=== PATIENT | male | born 1965 | race Caucasian/White ===

== ENCOUNTER 2019-08-21 06:39 | Observation (INO) ==
--- NOTE | 2019-08-11 21:02 | PAT Medication Instructions ---
Medication Instructions Date of Service August 11, 2019 Home Medications Medication Instructions Recorded diclofenac sodium 75 mg 75 mg PO BID PRN #60 tab 07/20/19 tablet,delayed release Continue as directed diclofenac sodium 75 mg tablet,delayed release 75 mg PO BID PRN acetaminophen [Tylenol Extra Strength] 1,000 mg PO TID PRN ASK your surgeon for instructions diclofenac sodium 75 mg tablet,delayed release 75 mg PO BID PRN Take morning of surgery With a small sip of water, OTHERWISE NOTHING TO EAT OR DRINK AFTER MIDNIGHT: acetaminophen [Tylenol Extra Strength] 1,000 mg PO TID PRN (okay to take up to 4 hours prior to surgery if needed) Take evening before surgery acetaminophen [Tylenol Extra Strength] 1,000 mg PO TID PRN (if needed) Other Notes If you have any questions please call us at [phone] or [phone] or [phone] or [phone]
--- NOTE | 2019-08-14 08:11 | Anesthesiology Consultation ---
Date of Service August 14, 2019 Assessment & Plan (1) Encounter for pre-operative examination: Per PAT assessment on 08/13: Travel screen negative. No known COVID-19 positive contacts. No current COVID-19 related symptoms. Patient scheduled for preop protocol COVID-19 testing on 08/15 (location TBD). Awaiting results. - Hx Glidescope intubation: Per anesthesia postprocedure (lap repair inguinal hernia) evaluation note from [facility] dated 05/15/18: "Endotracheal intubation was performed, a procedure that involves placement of a tube in your trachea using an instrument called a laryngoscope. When the procedure was performed, difficulty was encountered concerning your airway anatomy:your vocal cords could not be visualized using standard procedures. We were able to successfully ventilate you with positive pressure through a facemask and oral airway prior and during the intubation attempts. We were able to intubate you with the use of a video laryngoscope (Glidescope). If you needed to have a breathing tube placed we would recommend the use of a device similar to a Glidescope or a fibre optic bronchoscope." Chart Review Chart Review: Acceptable Risk for Surgery (pending COVID testing) and Patient seen in Pre Admission Testing Teaching & Discussion Pre-Anesthesia Teaching/Discussion Notes: Instructed NPO after midnight before surgery,except medications with 15 cc of water. Medication instructions provided according to the PAT guidelines. History Surgery Operation Date: 08/21/19 12:30 Proposed Procedures p Right Total Hip Replacement - Ken Ramos MD Height/Weight Height: 5 ft 10 in Weight: 121.1 kg Allergies Allergy/AdvReac Type Severity Reaction Status Date / Time No Known Allergies Allergy Mild Verified 08/08/19 13:19 Medications Home Medications Medication Instructions Recorded Confirmed Last Taken diclofenac sodium 75 mg 75 mg PO BID PRN #60 tab 07/20/19 08/08/19 Unknown tablet,delayed release acetaminophen [Tylenol Extra 1,000 mg PO TID PRN 08/08/19 08/08/19 Unknown Strength] Past Medical History Medical History (Updated 08/14/19 @ 08:32 by Sunni Collazo) Arthritis Obesity Past Family History Family History Father Family history of diabetes mellitus Past Surgical History Surgical History (Updated 08/14/19 @ 08:33 by Sunni Collazo) H/O elbow surgery R/L TENNIS ELBOW History of carpal tunnel release R/L History of cholecystectomy History of difficult intubation Per [facility] postprocedure anesthesia note for 04/2018 lap inguinal hernia repair: "Endotracheal intubation was performed, a procedure that involves placement of a tube in your trachea using an instrument called a laryngoscope. When the procedure was performed, difficulty was encountered concerning your airway anatomy:your vocal cords could not be visualized using standard procedures. We were able to successfully ventilate you with positive pressure through a facemask and oral airway prior and during the intubation attempts. We were able to intubate you with the use of a video laryngoscope (Glidescope). If you needed to have a breathing tube placed we would recommend the use of a device similar to a Glidescope or a fibre optic bronchoscope. History of hernia surgery X 3 History of PONV Hx of Motion Sickness (occasional) Social History Smoking Status: Never smoker Do You Dip or Chew Tobacco: No Hx Alcohol Use: Yes Alcohol type: hard liquor alcohol intake frequency: a few times a month Hx Substance Use: No Review of Systems Patient denies chest pain, shortness of breath, dyspnea on exertion, reflux, cough, wheezing, palpitations. Physical Exam Vital Signs VITALS BP 142/92 P 89 TEMP 98.2 SP02 95%RA RESP 18 PHYSICAL Full neck and c-spine range of motion. Full TMJ range of motion. TMD 4 finger breaths Mallampati Score 3 Dentition: upper right side missing, lower left molar to be extracted (filling lost and dentist recommended removal)- date TBD/patient states he will contact surgeon with date for dental work Lungs: clear throughout to auscultation Cardiac: regular rate and rhythm, no murmurs noted Spine: normal Carotid arteries: negative bruit Extremities: no edema + moustache Testing Laboratory Results 08/14/19 08:29 PT 11.7 Seconds (9.0-12.0) 08/14/19 08:29 INR 1.1 (0.9-1.1) 08/14/19 08:29 APTT 31.3 Seconds (21.0-31.0) H 08/14/19 08:29 Blood Type O Positive 08/14/19 08:29 Antibody Screen NEGATIVE 08/14/19 08:29 5/7/20 SODIUM 139 POTASSIUM 4.6 CHLORIDE 103 CO2 25 BUN 19 CREATININE 1.1 GLUCOSE 107 Electrocardiogram Date: 08/14/19 NSR at 72bpm. RVCD. No significant change compared to 12/05/2005 per brim and crown presser review. Chest X-Ray Date: 08/14/19 Heart and mediastinal and hilar silhouettes are within normal limits. Subcentimeter metallic radiodensity focus is again noted projecting over the midline lower neck. No pneumothorax, pleural effusion, airspace consolidation or overt pulmonary edema. Bones of the chest appear grossly intact. Mild convex right curvature of the midthoracic spine. Cholecystectomy. IMPRESSION: No acute process.
--- NOTE | 2019-08-14 09:11 | XRay Report ---
XR chest Pre-admission PA/Lat HISTORY: 54 years-old Male PAT preoperative exam. COMPARISON: Chest radiograph 12/05/2005 TECHNIQUE: PA and lateral views of the chest FINDINGS: Heart and mediastinal and hilar silhouettes are within normal limits. Subcentimeter metallic radioden sity focus is again noted projecting over the midline lower neck. No pneumothorax, pleural effusion, airspace consolidation or overt pulmonary edema. Bones of the chest appear grossly intact. Mild conve x right curvature of the midthoracic spine. Cholecystectomy. IMPRESSION: No acute process. ACT 112: Negative or not required by law. The above report was generated using voice recognition software. It may contain grammatical, syntax o r spelling errors. Electronically signed by: Kofi Lima M.D. 08/14/2019 9:09 AM
[2019-08-14 10:12] LABS: Basophils # (auto) 0.03 K/uL (0-0.2); Basophils % (auto) 0.5 %; Eosinophils # (auto) 0.08 K/uL (0-0.5); Eosinophils % (auto) 1.4 %; Hematocrit (blood only) 44.8 % (42-52); Hemoglobin 15.1 g/dL (14.0-18.0); Immature Granulocytes # (auto) 0.01 K/uL (0.00-0.02); Immature Granulocytes % (auto) 0.2 %; Lymphocytes # (auto) 0.66 K/uL (1.2-3.4); Lymphocytes % (auto) 11.9 %; Mean Corpuscular Hemoglobin 31.4 pg (25-34); Mean Corpuscular Hgb Conc 33.7 g/dL (32-36); Mean Corpuscular Volume 93.1 fL (80-100); Mean Platelet Volume 11.8 fL (7.4-10.4); Monocytes # (auto) 0.88 K/uL (0.11-0.59); Monocytes % (auto) 15.9 %; Neutrophils # (auto) 3.88 K/uL (1.4-6.5); Neutrophils % (auto) 70.1 %; Platelet Count 226 K/uL (130-400); RDW Coefficient of Variation 13.4 % (11.5-14.5); RDW Standard Deviation 45.9 fL (36.4-46.3); Red Blood Count 4.81 M/uL (4.7-6.1); White Blood Count 5.54 K/uL (4.8-10.8)
[2019-08-14 10:21] LABS: INR 1.1 (0.9-1.1); Partial Thromboplastin Ratio 1.1; Partial Thromboplastin Time 31.3 Seconds (21.0-31.0); Prothrombin Time 11.7 Seconds (9.0-12.0)
--- NOTE | 2019-08-14 12:19 | Electrocardiogram Report ---
Test Reason : Blood Pressure : / mmHG Vent. Rate : 072 BPM Atrial Rate : 072 BPM P-R Int : 148 ms QRS Dur : 108 ms QT Int : 398 ms P-R-T Axes : 038 052 031 degrees QTc Int : 435 ms Normal sinus rhythm Right ventricular conduction delay When compared with ECG of 05-DEC-2005 20:45, No significant change was found Confirmed by Alex Gonzales ([id number]) on 08/14/2019 12:18:26 PM Referred By: Ken Ramos Confirmed By:Sebastien Gonzales
[~2019-08-21 06:39] MED LIST: BUPIVACAINE 0.5 % 5 MG/1 ML PF 10ML VIAL ONE; CEFAZOLIN 3000MG 72.5 ML IV SCH; LR 500ML BOLUS, THEN 15ML/HR IV SCH; LR 60ML/HR IV SCH
[2019-08-21] MEDS ORDERED: TRANEXAMIC ACID / 0.7% NACL 1000MG/100ML BAG IV ONE (06:58)
[2019-08-21] MEDS ORDERED: GABAPENTIN 300 MG CAP ONE (06:58)
[2019-08-21] MEDS ORDERED: ACETAMINOPHEN 500 MG TAB ONE (06:58)
[2019-08-21] MEDS ORDERED: METOCLOPRAMIDE HCL 10 MG TABLET ONE (06:58)
[2019-08-21] MEDS ORDERED: SCOPOLAMINE 1.5 MG TDSY TD ONE (06:58)
[2019-08-21] MEDS ORDERED: MIDAZOLAM HCL 1 MG/ML 2ML VIAL ONE (07:41)
[2019-08-21] MEDS ORDERED: MoRPHine SULFATE PF 1 MG/ML 10 ML AMP/VIAL ONE (07:41)
[2019-08-21] MEDS ORDERED: ePHEDrine sulfate 50 MG/ML AMP IV PRN ×2 (08:13)
[2019-08-21] MEDS ORDERED: LACTATED RINGER'S 500 ML IV PRN (08:13)
[2019-08-21] MEDS ORDERED: MoRPHine SULFATE 2 MG/ML CARP IV PRN (08:13)
[2019-08-21] MEDS ORDERED: NALOXONE HCL 0.08 MG in SYRINGE 1.8 ML IV PRN (08:13)
[2019-08-21] MEDS ORDERED: ATROPINE SULFATE 0.1 MG/ML 10ML SYR IV PRN (08:13)
[2019-08-21] MEDS ORDERED: HYDROmorphone INJ 0.5 MG/0.5 ML SYR IV PRN (08:13)
[2019-08-21] MEDS ORDERED: MoRPHine SULFATE PF 1 MG/ML 10 ML AMP/VIAL INT SPINAL ONE (08:13)
[2019-08-21] MEDS ORDERED: NALOXONE HCL 1 MG in SODIUM CHLORIDE 0.9% 1000ML 1,000 ML IV PRN (08:13)
[2019-08-21] MEDS ORDERED: fentaNYL citrate 100 MCG/2 ML VIAL IV PRN (08:13)
[2019-08-21] MEDS ORDERED: NALOXONE HCL 0.4 MG/1 ML VIAL/CARP IV PRN ×2 (08:13→11:46)
[2019-08-21] MEDS ORDERED: NALBUPHINE HCL INJ 10 MG/ML AMP IV PRN (08:13)
[2019-08-21] MEDS ORDERED: ONDANSETRON INJ 2 MG/ML 2 ML VIAL IV PRN ×2 (08:13)
[2019-08-21] MEDS ORDERED: DiphenhydrAMINE HCL 50 MG/ML VIAL IV PRN (08:13)
[2019-08-21] MEDS ORDERED: NO NARCOTICS OR SEDATIVES SCH (08:15)
[2019-08-21] MEDS ORDERED: DC INTRASPINAL MORPHINE SCH (08:15)
[2019-08-21] MEDS ORDERED: SODIUM CHLORIDE 0.9% 1000ML 1,000 ML IV SCH (08:15)
--- NOTE | 2019-08-21 08:21 | History & Physical Bridge Note ---
Date of Service August 21, 2019 History & Physical Bridge Note I have examined the patient, reviewed the History & Physical and in the interval since the performance of the History & Physical I have noted the following changes of clinical significance: no changes noted
[2019-08-21] MEDS ORDERED: BUPIVACAINE 0.5 % 5 MG/1 ML MPF 30ML VIAL ONE (08:25)
[2019-08-21] MEDS ORDERED: BACITRACIN INJ 50,000 UNIT VIAL ONE (08:25)
[2019-08-21] MEDS ORDERED: EPINEPHrine INJ 1 MG/ML AMP ONE (08:25)
[2019-08-21] MEDS ORDERED: LIDOCAINE HCL 2% 2 ML VIAL/AMP(20MG/ML) INFIL ONE (09:23)
[2019-08-21] MEDS ORDERED: PHENYLEPHRINE 100MCG/ML 5ML SYR ONE (09:23)
[2019-08-21] MEDS ORDERED: PHENYLEPHRINE HCL 10 MG/ML VIAL ONE (09:23)
[2019-08-21] MEDS ORDERED: GLYCOPYRROLATE 0.2 MG/ML VIAL ONE (09:23)
[2019-08-21] MEDS ORDERED: PROPOFOL IV EMULSION 10 MG/ML 20 ML VIAL IV ONE ×3 (09:23→09:57)
--- NOTE | 2019-08-21 10:46 | Post Operative Brief Note ---
PG Immediate Post Op with CF Date of Surgery August 21, 2019 Pre & Post Diagnosis Operation Date: 08/21/19 08:50 Pre-Op Diagnosis: Right Hip Advanced Degenerative Joint Disease Post-Op Diagnosis: Right Hip Advanced Degenerative Joint Disease I identified the patient and participated in the time-out.: Yes Procedure Operation Date: 08/21/19 08:50 Actual Procedures p Right Total Hip Arthroplasty--Uncemented(Right) - Ken Ramos MD Surgeon Ken Ramos MD Cotton Farmworker [place], [facility] Estimated Blood Loss 300 Findings Consistent with Post-Op Diagnosis Fluids 1400 cc Specimens Specimen Description: A. right femural head Drains Tolbert Catheter Complications none Disposition Accompanied Patient To Recovery: Yes Disposition: Recovery Room
--- NOTE | 2019-08-21 11:00 | Operative Report ---
Post Operative Report Pre & Post Diagnosis Operation Date: 08/21/19 08:50 Pre-Op Diagnosis: Right Hip Advanced Degenerative Joint Disease Post-Op Diagnosis: Right Hip Advanced Degenerative Joint Disease I identified the patient and participated in the time-out.: Yes Procedure Operation Date: 08/21/19 08:50 Actual Procedures p Right Total Hip Arthroplasty--Uncemented(Right) - Ken Ramos MD Surgeon Ken Ramos MD Coverage Analyst Mona, [facility] Estimated Blood Loss 300 Findings Consistent with Post-Op Diagnosis Operative findings revealed advanced right hip DJD. He had grade 4 changes of the femoral head and acetabulum. Not a lot of osteophyte formation. Very large so thick soft tissue envelope and a very burly and stiff hip. Fluids 1400 cc. Specimens Right femoral head sent for pathology. Drains None. Anesthesia Type Spinal MAC Complications none Disposition Accompanied Patient To Recovery: Yes Disposition: Recovery Room Indications Patient is a 54-year-old very active gentleman is had a several year history of increasing right hip pain discomfort is gotten suddenly worse over the past 6 months. He has been through conservative care and was not providing adequate relief for him. X-ray revealed moderate to advanced hip arthritis. He failed conservative treatment elected to total hip arthroplasty. This gentleman was quite large in stature with a very stiff hip. Description of Procedure Operative implants consisted of: 1. Biomet G7 size 56 mm acetabular shell. 2. 6.5 cancellus acetabular screws 1 of 35 mm in length and 125 mm length. 3. Ethel hole eliminator. 4. Highly cross-linked polyethylene liner with a 56 mm outer diameter, 36 mm inner diameter with a serrano placed inferior and posterior 5. London Corail size 11 KLA femoral stem. 6. +5/36 mm ceramic articular ball. Patient was taken to the operating room identified and placed in the operating table supine position protectors were properly padded. IV antibiotics arrived by anesthesia team. A spinal anesthetic of the implemented holding area. Tolbert catheter was placed in sterile fashion. The patient then placed in the left lateral decubitus with disposition. An axillary roll was placed. A Stulberg hip positioner was used for positioning. The right hip and leg were then prepped and draped in usual sterile fashion. A posterior lateral approach to the right hip was then performed through a curvilinear incision centered over the greater trochanter. Sharp dissection got through subcutaneous tissue down to the IT band gluteal fascia the IT band gluteal fascia incised longitudinally in line with skin incision. Greater bursa was excised. The piriformis and external rotators and posterior capsule were then released from the posterior aspect hip joint as a single layer. Great care was taken throughout the procedure protect the sciatic nerve at all times. Hip was internally rotated and dislocated. Femoral neck osteotomy cut was made with Final Cut about 15 mm above the lesser trochanter. Femoral head was removed and sent for pathology. The femur was retracted anteriorly. Attention drawn the acetabulum. The acetabular labrum was excised. The pulmonary fat was excised. Sequential reaming the acetabular was then performed again with size 45 and progressing up to 55. A 56 mm Biomet G7 acetabular shell was then placed in about 40 degrees lateral opening and 20 degrees of anteversion. It was fixed with two 6.5 cancellus acetabular screws. Trial liner was placed. Attention drawn the femur. The proximal femur was entered with a cookie-cutter followed by canal finder. I then broached begin the size 8 and progressing up to 11. We got excellent fit and 11. He had excellent cancellus bone. Calcar reamer was used smooth and off the calcar. We then trialed the hip and the +5 articular ball provided appropriate soft tissue tension and seem to equalize leg lengths. Hip was stable in full extension and external rotation flexion to 9 degrees into rotation about 50 degrees. I did elect to place a serrano inferior and posterior to maximize the stability in flexion. I elected to place these implants. All trial implants were removed. An apex eliminator was placed. A highly cross-linked polyethylene liner with a serrano placed inferior and posterior was placed. A London KLA size 11 femoral stem was impacted in position. +5/36 mm ceramic articular ball was placed. Hip was located once again found to be stable. Attention drawn toward closing. Nupathe wounds irrigated cups ounce pulsatile lavage solution. I did inject locally with 60 cc of half percent Marcaine with epinephrine. The posterior capsule and external rotators were repaired through drill holes in the posterior trochanter as a single layer with #2 Tycron suture. The IT band gluteal fascia then closed in 1 PDS suture runnin g fashion with subcutaneous tissue then closed with 2 layers with a deep layer #2 Vicryl suture and subcutaneous tissues with 2-0 Dexon suture in a buried interrupted fashion the skin was closed skin randall. Leg was then cleaned dried and sterile Kenzie direct dressing was applied due to is a large and thick soft tissue envelope. Patient then transferred to the recovery in stable condition. Patient tolerated procedure well complications I attest to the content of the Intraoperative Record and any orders documented therein. Any exceptions are noted below.
--- NOTE | 2019-08-21 11:25 | XRay Report ---
XR hip 1V RT w pelvis CLINICAL HISTORY: IN PACU - A/P PELVIS and LATERAL HIP COMPARISON: 07/05/2019 DISCUSSION: Anatomic alignment posttotal right hip arthroplasty. Could contact between prosthetic and underlying bone. Expected postoperative soft tissue change IMPRESSION: Anatomic alignment posttotal right hip arthroplasty. ACT 112: Negative or not required by law. The above report was generated using voice recognition software. It may contain grammatical, syntax or spelling errors. Electronically signed by: Omkar Jefferson M.D. 08/21/2019 11:24 AM
[2019-08-21] MEDS ORDERED: ALUMINUM/MAGNESIUM SUSP 30 ML UDC PO PRN (11:46)
[2019-08-21] MEDS ORDERED: MAGNESIUM HYDROXIDE SUSP 30 ML UDC PO PRN (11:46)
[2019-08-21] MEDS ORDERED: bisacodyL 10 MG SUPP PR PRN (11:46)
[2019-08-21] MEDS ORDERED: TAMSULOSIN HCL 0.4 MG CAP PO PRN (11:46)
[2019-08-21] MEDS ORDERED: METOCLOPRAMIDE HCL INJ 5 MG/ML 2 ML VIAL IV PRN (11:46)
[2019-08-21 13:04] LABS: Creatinine Clr Calc Pharmacy 124.1 ml/min; Est GFR (African American) 112.9; Est GFR (Non-African American) 97.4
[2019-08-21] MEDS: SODIUM CHLORIDE 0.9% 1000ML 1,000 ML IV SCH ×2 (14:49→20:59)
[2019-08-21] MEDS: KETOROLAC 30 MG/ML VIAL IV SCH ×2 (14:51→20:53)
--- NOTE | 2019-08-21 15:24 | Anesthesiology Progress Note ---
Date of Service August 21, 2019 Anesthesia Post Procedure Vital Signs Vital Signs: Temp Pulse Pulse Resp BP BP Pulse Ox 08/21/19 14:57 36.6 C 80 16 138/90 92 08/21/19 14:30 16 92 08/21/19 13:50 36.4 C L 85 16 132/86 96 08/21/19 13:30 16 94 08/21/19 12:35 16 96 08/21/19 12:30 16 93 08/21/19 12:15 77 16 132/89 94 08/21/19 11:30 36.6 C 84 16 125/80 94 08/21/19 11:15 78 14 133/85 93 08/21/19 11:05 36.7 C 90 19 118/83 94 08/21/19 10:55 91 H 15 106/77 94 08/21/19 10:48 36.1 C L 88 16 112/74 95 08/21/19 07:45 73 20 134/96 97 08/21/19 07:13 37.0 C 81 18 153/95 H 99 Pain Intensity Right Hip: Pain Intensity: 6 Transfer of Care Handoff Completed per policy Notes Mental Status: alert / awake / arousable and participated in evaluation Patient Amnestic to Procedure: Yes Nausea / Vomiting: adequately controlled Pain: adequately controlled Airway Patency, RR, SpO2: stable & adequate BP & HR: stable & adequate Hydration State: stable & adequate Neuraxial Anesthesia: was administered and sensory block is resolving Anesthetic Complications: no major complications apparent and Pt Satisfied with anesthetic care
--- NOTE | 2019-08-21 15:51 | Progress Notes ---
DATE: 08/21/2019 SUBJECTIVE: A 54-year-old gentleman postop from right hip replacement. He is doing well. Fairly minor pain. No chest pain or shortness of breath. Not feeling dizzy or lightheaded. OBJECTIVE: VITAL SIGNS: Temperature 36.6. Vital signs stable. GENERAL: Shows a pleasant, middle-aged male. He is sitting up in bed and eating dinner. Looks comfortable. LUNGS: Clear to auscultation. HEART: Has a regular rate and rhythm. ABDOMEN: Soft, nontender, nondistended. EXTREMITIES: Grossly neurovascularly intact except as follows: Examination of the right hip and leg reveals the dressing to be clean, dry and intact. Leg lengths are equal. He can dorsiflex and plantarflex his foot appropriately. He is neurologically intact. X-RAYS: X-rays of the right hip from recovery room are reviewed. It shows right uncemented total hip arthroplasty. Components looked to be in good position. No signs of problems. ASSESSMENT: A 54-year-old gentleman postoperative from right hip replacement, doing well. His pain is controlled. Hip is located. He is neurologically intact. PLAN: 1. DVT prophylaxis including thigh-high TEDs, SCDs, and aspirin twice a day. 2. PT/OT. Weight bear as tolerated. Right total hip protocol. 3. Pain control, doing well with current pain regimen. 4. IV antibiotics x24 hours. 5. Disposition: Plan to discharge to home and I think he is planning on doing some home health for the first 2 weeks.
[2019-08-21] MEDS: ACETAMINOPHEN 500 MG TAB PO SCH ×2 (16:10→23:18)
[2019-08-21] MEDS ORDERED: TRANEXAMIC ACID / 0.7% NACL 1,000 MG/100 ML BAG IV SCH (17:00)
[2019-08-21] MEDS: FERROUS GLUCONATE 324 MG TAB PO SCH (17:35)
[2019-08-21] MEDS: CEFAZOLIN 2000MG 2,000 MG/15 ML SYR IV SCH (17:35)
[2019-08-21] MEDS: ASCORBIC ACID 500 MG TAB PO SCH (17:35)
[2019-08-21] MEDS: ASPIRIN 81 MG ECTAB PO SCH (20:55)
[2019-08-21] MEDS: DOCUSATE SODIUM 100 MG CAP PO SCH (20:55)
[2019-08-21] MEDS ORDERED: SENNA 8.6 MG TAB PO SCH (21:00)
[2019-08-22] MEDS: CEFAZOLIN 2000MG 2,000 MG/15 ML SYR IV SCH (02:01)
[2019-08-22] MEDS: KETOROLAC 30 MG/ML VIAL IV SCH ×2 (02:02→08:27)
[2019-08-22] MEDS ORDERED: TRAMADOL HCL 50 MG TABLET PO PRN (02:14)
[2019-08-22] MEDS ORDERED: HYDROmorphone INJ 0.5 MG/0.5 ML SYR IV PRN (02:14)
[2019-08-22] MEDS ORDERED: ONDANSETRON INJ 2 MG/ML 2 ML VIAL IV PRN (02:14)
[2019-08-22] MEDS: SODIUM CHLORIDE 0.9% 1000ML 1,000 ML IV SCH (03:58)
[2019-08-22 06:48] LABS: Basophils # (auto) 0.03 K/uL (0-0.2); Basophils % (auto) 0.4 %; Eosinophils # (auto) 0.13 K/uL (0-0.5); Eosinophils % (auto) 1.8 %; Hematocrit (blood only) 33.5 % (42-52); Hemoglobin 11.2 g/dL (14.0-18.0); Immature Granulocytes # (auto) 0.01 K/uL (0.00-0.02); Immature Granulocytes % (auto) 0.1 %; Lymphocytes # (auto) 0.54 K/uL (1.2-3.4); Lymphocytes % (auto) 7.3 %; Mean Corpuscular Hgb Conc 33.4 g/dL (32-36); Mean Corpuscular Volume 92.8 fL (80-100); Mean Platelet Volume 11.2 fL (7.4-10.4); Monocytes # (auto) 1.15 K/uL (0.11-0.59); Monocytes % (auto) 15.6 %; Neutrophils # (auto) 5.49 K/uL (1.4-6.5); Neutrophils % (auto) 74.8 %; Platelet Count 184 K/uL (130-400); RDW Coefficient of Variation 13.5 % (11.5-14.5); RDW Standard Deviation 46.1 fL (36.4-46.3); Red Blood Count 3.61 M/uL (4.7-6.1); White Blood Count 7.35 K/uL (4.8-10.8)
--- NOTE | 2019-08-22 07:00 | Orthopedic Progress Note ---
Date of Service August 22, 2019 Assessment & Plan (1) Status post total hip replacement, right: He is doing well. Pain is controlled. Continue DHAVAL stockings, SCDs, aspirin for DVT prophylaxis. Continue PT/OT. He is weightbearing as tolerated. Continue total hip precautions. Continue discharge planning. He would like to go home so we will work on discharge home with home health today if he is doing well with therapy. Subjective 54-year-old male postop day 1 from right total hip replacement. He is doing well. He says his hip feels stiff but he really is not having much pain. Denies chest pain, shortness of breath, lightheadedness or dizziness. He has been up and walking yesterday. No new complaints this morning. Physical Exam Physical Exam: He is alert and oriented. No distress. Kenzie VAC in the right incision area on his hip is intact. He is able dorsiflex and plantar flex appropriately. Good alignment to the leg. Hip is located. He is neurovascular intact. Results & Data ([facility]) Vital Signs (Past 12 Hours) Vital Signs Temp Pulse Resp BP BP Pulse Ox 08/22/19 03:52 36.7 C 80 18 115/67 92 08/22/19 02:00 18 96 08/22/19 01:35 16 95 08/22/19 00:30 14 94 08/21/19 23:25 36.6 C 76 18 126/69 97 08/21/19 22:25 18 95 08/21/19 20:38 16 96 08/21/19 19:32 36.7 C 91 H 18 135/88 90 08/21/19 19:30 16 92 PG Care Time/CCT Total # of Minutes Spent Total Time Spent with Patient: Total time spent is greater than 50% in coordination of care (as documented) at patient's floor/unit and/or counseling patient: Coding Level of Care Code None Diagnoses Status post total hip replacement, right Z96.641
[2019-08-22 07:16] LABS: BUN Creatinine Ratio 13.3 (10-20); Calcium 8.1 mg/dl (8.5-10.1); Creatinine Clr Calc Pharmacy 113.7 ml/min; Est GFR (African American) 103.4; Est GFR (Non-African American) 89.3; Potassium 3.5 mmol/L (3.5-5.1)
[2019-08-22] MEDS: ASPIRIN 81 MG ECTAB PO SCH (08:25)
[2019-08-22] MEDS: ACETAMINOPHEN 500 MG TAB PO SCH (08:26)
[2019-08-22] MEDS: DOCUSATE SODIUM 100 MG CAP PO SCH (08:26)
[2019-08-22] MEDS: ASCORBIC ACID 500 MG TAB PO SCH (08:26)
[2019-08-22] MEDS: FERROUS GLUCONATE 324 MG TAB PO SCH (08:27)
[2019-08-22] MEDS ORDERED: MULTIVITAMIN TAB PO SCH (09:00)
--- NOTE | 2019-08-27 07:41 | Discharge Summary ---
Date of Service August 27, 2019 Admission HPI Per Admitting Provider Documented in the H&P Admission Exam (Per Admitting) Constitutional Documented in the H&P Discharge Data Consultations 08/22/19 08:00 Consult Case Management - Discharge Planning Routine Procedures Performed Operation Date: 08/21/19 08:50 Actual Procedures p Right Total Hip Arthroplasty--Uncemented(Right) - Ken Ramos MD Hospital Course (1) Status post total hip replacement, right: 54-year-old male admitted on 08/21/2019 underwent total hip replacement. He tolerated procedure well and there were no complications. He was transferred to the PACU postoperatively and later the orthopedic floor for further care. He was given Ancef for antibiotic prophylaxis. He was given DHAVAL stockings, SCDs, and aspirin for DVT prophylaxis. His hemoglobin, hematocrit, and vital signs were monitored during his hospital stay remained stable. He not requiring blood transfusions. There were no complications. By postoperative day 1 he was tolerating a regular diet, pain was controlled with oral pain medicine, and is participating with physical therapy. On postop day 1 he was discharged home set up with home health services. He was given printed discharge instructions as well as new prescriptions for extra strength Tylenol, aspirin, and tramadol. Continue physical therapy. He is weightbearing as tolerated. Total hip precautions. DHAVAL stockings. Follow-up approximately 2 weeks postoperatively or sooner if any problems or concerns. Coding Level of Care Code None Diagnoses Status post total hip replacement, right Z96.641
== END 2019-08-22 13:52 | disposition home health service (06) ==
LOC: 3E 06:39 → ASU 06:39